=== PATIENT | male | born 1950 | race Caucasian/White ===

== ENCOUNTER 2020-03-05 16:45 | Emergency (ER) | payer MEDICARE, SELFPAY ==
[2020-03-05] MEDS: TETANUS,DIPHTHERIA,AC PERTUSSIS ADULT 0.5 ML (ADACEL) IM (17:12)
[2020-03-05 17:15] VITALS: BP 179/81; PULSE 76; RESP 15; TEMP 36.2; O2SAT 99
--- NOTE | 2020-03-05 17:22 | ED.EYEPROB ---
HPI - Eye Problem General Chief complaint: Eye Problems Stated complaint: R eye injury Time Seen by Provider: 03/05/20 16:52 Source: patient Mode of arrival: ambulatory Limitations: no limitations History of Present Illness HPI Narrative: 60-year-old man with a history of cataracts status post implants comes in today complaining of right eye pain and some blurry vision after an injury this afternoon. Patient states he was mowing and the more kicked out a rock that bounced off a tree and struck him in the right eye. He has some mild irritation in the lower eyelid area but denies headache, vomiting and double vision. Does not recall his last tetanus shot. chief complaint: eye pain, eye redness and eye injury Onset (ago): hour(s) (2) Onset description: sudden Duration: constant Location: right eye Eye Symptoms: burning, redness, pain and blurry vision Place: home Mechanism: direct trauma Severity: moderate If Pain, Quality: sharp and burning Context: other Associated symptoms: none Treatments Prior to Arrival: none Related Data Patient tetanus UTD: No Home Medications Medication Instructions Recorded Confirmed cephalexin 500 mg PO BID 03/05/20 03/05/20 lisinopril 10 mg PO DAILY 03/05/20 03/05/20 Allergies Allergy/AdvReac Type Severity Reaction Status Date / Time No Known Allergies Allergy Mild Unverified 12/02/07 08:13 Review of Systems Constitutional: Constitutional: Denies chills and Denies fever(s) Eyes: Eyes: Reports change in vision and Reports photophobia ENT: Denies dysphagia, Denies nasal congestion and Denies sore throat Cardiovascular: Cardiovascular: Denies chest pain and Denies radiating jaw, neck or arm pain Respiratory: Respiratory: Denies cough, Denies dyspnea and Denies wheezing Gastrointestinal: Gastrointestinal: Denies nausea and Denies vomiting Musculoskeletal: Musculoskeletal: Denies arthralgias and Denies joint swelling Neurologic: Denies vertigo, Denies dizziness and Denies syncope Hematologic/Lymphatic: Hematologic/Lymphatic: Reports easy bleeding and Reports easy bruising Allergic/Immunologic: Allergic/Immunologic: Reports lip swelling and Reports wheezing PMFSH Past Medical History Medical History (Updated 03/05/20 @ 17:31 by Juanjose Velez MD) Cataract Hypertension Prostate cancer Surgical History Surgical History H/O neck surgery History of phacoemulsification of cataract of right eye with intraocular lens implantation History of prostate surgery Social History Social History (Updated 03/05/20 @ 17:27 by Juanjose Velez MD) Smoking status: Never smoker Alcohol intake: never Substance use: never Living arrangements: with family Exam Const: General: healthy appearing and alert Orientation/consciousness: patient oriented x3 Limitations: no limitations Other: mild acute distress. HENMT: Head: normal to inspection Ears: external ears normal, TM's normal bilaterally and EAC's normal Mouth: Yes moist mucous membranes Throat: posterior oropharynx normal Eyes: Conjunctivae: conjunctival abnormality right conjunctival injection Pupils: Equal, round and reactive pupils present EOM: EOMs intact bilaterally Direct Ophthalmoscopy: photophobia ( Mild right) Other: Linear corneal abrasion at the 3 o'clock position (nasal) of the right cornea. There are some smaller punctate areas of Fluorescein uptake as well. Anterior chamber on gross exam appears normal. pupil is normal in appearance. Upper eyelid was inverted and swept with a moistened swab and no foreign body was found. The lower fossa was swept with a moistened swab and no foreign body was found. Resp: Effort & Inspection: normal respiratory effort and not labored Auscultation: clear to auscultation bilaterally, no rales, no rhonchi and no wheezes Cardio: Rate: abnormal rate Rhythm: abnormal rhythm Heart sounds: no murmurs Skin
--- NOTE | 2020-03-05 17:25 | PCDIET ---
VISUAL ACUITY 20/100 RIGHT EYE - EYE ASSESSMENT AND STAIN PER ERP SHOWS CORNEAL ABRASION
[2020-03-05 17:37] VITALS: RESP 16
== END 2020-03-05 17:40 | disposition home or self-care (01) ==
PROVIDERS: Emergency Provider Emergency Medicine; PCP Internal Medicine
DX: S05.01XA Injury of conjunctiva and corneal abrasion without foreign body, right eye, initial encounter (principal); W20.8XXA Other cause of strike by thrown, projected or falling object, initial encounter
CPT/HCPCS: 90471; 90715; 99283; A9270

== ENCOUNTER 2021-04-17 13:14 | Outpatient (CLI) | payer MEDICARE, OTHER, SELFPAY ==
--- NOTE | ~2021-04-17 | US_ITS ---
EXAMINATION: US retroperitoneal comp EXAM DATE: 04/17/2021 13:53 INDICATION: Stage 2 CKD . TECHNIQUE: Multiple grayscale and Doppler images of the kidneys were obtained (by a technologist who performed the scan) and subsequently reviewed. There is no prior study for comparison. FINDINGS: Right kidney: There is normal contour and echogenicity. It measures 10.8 x 5.1 x 5.1 centimeters. T here are no focal renal lesions identified. There is no hydronephrosis. Left kidney: There is normal contour and echogenicity. It measures 11.2 x 5.9 x 5.8 centimeters. Th ere are no focal renal lesions identified. There is no hydronephrosis. Bladder unremarkable. IMPRESSION: 1. Sonographically unremarkable kidneys. Reviewed, dictated and finalized at location A.
== END 2021-04-17 13:15 | disposition home or self-care (01) ==
LOC: CHSIMG 13:16
PROVIDERS: PCP Internal Medicine; Visit Provider Internal Medicine
DX: N18.2 Chronic kidney disease, stage 2 (mild) (principal)
CPT/HCPCS: 76770

== ENCOUNTER 2021-06-07 15:00 | Outpatient (RCR) | payer MEDICARE, OTHER, SELFPAY ==
--- NOTE | 2021-05-17 15:28 | PTOPEVAL ---
INITIAL PHYSICAL THERAPY EVALUATION and PLAN OF CARE Thank you for referring Kavon Crow to [facility].? Kavon is scheduled to be seen for physical therapy? 1x/week for 3 weeks. Please review, sign, date and return this plan of care GREGORIO. I agree with and certify that the following plan of care is medically necessary. Referring Physician Date Admitting Provider: Attending Provider: Renan Dozier MD Referring Provider: *PT Outpatient Evaluation Start: 05/17/21 14:13 Freq: Status: Active Protocol: Document 05/17/21 14:10 KAYLEE (Rec: 05/17/21 15:28 KAYLEE [id number]) Therapy Assessment Status Assessment Status Assessment Status Evaluation Outpatient Past Medical History Past Medical History Source of Past Medical History Recalled from Previous Visit, Confirmed with Patient/Family Cardiovascular History Hx Hypercholesterolemia Yes Hx Hypertension Yes Musculoskeletal History Hx Orthopedic Surgery Yes: NECK SURGERY - cervical fusion HEENT History Hx Cataracts Yes Other History Hx Cancer Yes: PROSTATE -surgical removal no chemo or radiation Evaluation Information Problem Diagnosis gait abnormalities, vestibular neuronitis, unspecified ear Onset November 2020 Subjective Information Sudden onset of severe Query Text:As Reported By Patient/ unsteadiness, decreased Family balance - received steroid injection and then medication - better but not back to normal. Then underwent diagnostic testing - carotids, brain scan - normal. Went to see ENT - didn't think it was vertigo - either Dr. Dozier or PCP ordered another round of steroid dose pack - helped with driving symptoms. Still having difficulties - when goes to cough/sneeze will feel a movement/sliding sensation, with eyes closed will feel off balance, stair climbing and looking up will feel unsteady. 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
--- NOTE | 2021-06-07 16:12 | PTOPEVAL ---
PHYSICAL THERAPY DISCHARGE SUMMARY Thank you for referring Kavon Crow to [facility].? Kavon has been seen x 4 visits in PT. He has met goals set and is compliant with HEP. He is to continue to upgrade VOR and balance activities at home. I agree with Kavon's discharge from PT. Referring Physician Date Admitting Provider: Attending Provider: Renan Dozier MD Referring Provider: Therapy Assessment Status Assessment Status Assessment Status Discharge Evaluation Information Problem Diagnosis gait abnormalities, vestibular neuronitis, unspecified ear Subjective Information Kavon reports overall better Query Text:As Reported By Patient/ . Will have moments of Family feeling really good, and then other times feeling a little off still. When driving the other day, increased rain - had to turn up windshield wipers - felt a little off - felt bombarded with everything . Didn't last long. When coughs - will still have the swerving motion sensation a little bit. The other day - did take a fall - light wasn't on, misstep - went down. When driving - still will have an off sensation - things kind of swerving. Generally feeling better on his feet now - steadier/improved balance. Pain Assessment Timing of Pain Assessment Timing of Pain Assessment Assessment Self Report Self Report Pain Level 0 Pain Score Pain Score 0: Self Report Vestibular Evaluation Vestibular Medical Information Standardized Tests Dizziness Handicap Inventory Standardized Test Scores (Number 0-100) 24 Vestibular Balance Standing Balance: Firm Surface Eyes Open WNL for 30 Seconds Standing Balance: Firm Surface Eyes WNL Closed for 30 Seconds Standing Balance: Foam Surface Eyes Open WNL for 30 Seconds Standing Balance: Foam Surface Eyes WNL,Sway Closed for 30 Seconds Tandem Stance: Eyes Open - Right Foot 30 Forward Tandem Stance: Eyes Open - Left Foot 30 Forward Tandem Stance: Eyes Closed - Right Foot 4 Forward Tandem Stance: Eyes Closed - Left Foot 13 Forward Vestibular Balance Comments single leg stance L 30 sec R 30 sec - stopped testing at 30 sec
== END 2021-06-08 12:52 | disposition home or self-care (01) ==
LOC: ANHPT 15:00
PROVIDERS: PCP Internal Medicine; Visit Provider Otolaryngology
DX: R26.89 Other abnormalities of gait and mobility (principal); H81.20 Vestibular neuronitis, unspecified ear
CPT/HCPCS: 97110; 97162

== ENCOUNTER 2021-08-28 12:54 | Outpatient (CLI) | payer MEDICARE, OTHER, SELFPAY ==
[2021-08-28 15:21] LABS: Influenza A QL RT-PCR Negative (Negative); Influenza B QL RT-PCR Negative (Negative); SARS-CoV-2 RNA PCR Positive (Negative)
== END 2021-08-28 12:55 | disposition home or self-care (01) ==
LOC: CHSLAB 12:56
PROVIDERS: PCP Internal Medicine; Visit Provider Internal Medicine
DX: U07.1 COVID-19 (principal); R05.9 Cough, unspecified; J02.9 Acute pharyngitis, unspecified
CPT/HCPCS: 87502; 87651; C9803; U0003; U0005

== ENCOUNTER 2022-01-08 14:14 | Outpatient (CLI) | payer MEDICARE, OTHER, SELFPAY ==
--- NOTE | ~2022-01-08 | XR_ITS ---
EXAMINATION: XR chest 2V DATE: 01/08/2022 14:40 INDICATION: Chest pain. TECHNIQUE: Frontal and lateral views of the chest were obtained on 3 radiographs. COMPARISON: None. FINDINGS: There is mild atelectasis in the lower lung zones. No pleural effusion or pneumothorax. The heart size is normal. Calcified left hilar lymph nodes are consistent with old granulomatous disease . There is mild chronic height loss of multiple vertebral bodies. IMPRESSION: 1. Mild atelectasis in the lower lung zones. Reviewed, dictated and finalized at location B.
[2022-01-08 14:33] LABS: Basophils Absolute Auto 0.07 K/mm3 (0.00-0.10); Basophils Percent Auto 0.8 % (0.0-1.0); Eosinophils Absolute Auto 0.06 K/mm3 (0.02-0.50); Eosinophils Percent Auto 0.7 % (1.0-6.0); Hematocrit 45.5 % (37.0-46.0); Hemoglobin 15.3 g/dL (12.4-15.3); Immature Granulocyte Absolute 0.02 K/mm3 (0.00-0.00); Immature Granulocyte Percent A 0.2 % (0.0-0.0); Lymphocytes Absolute Auto 1.16 K/mm3 (1.10-4.50); Lymphocytes Percent Auto 13.5 % (18.0-42.0); Mean Corpuscular HGB Conc 33.6 g/dL (32.0-36.0); Mean Corpuscular Volume 92.3 fL (78.0-102.0); Mean Platelet Volume 10.8 fl (8.7-11.0); Monocytes Percent Auto 9.3 % (2.0-11.0); Neutrophils Absolute Auto 6.5 K/mm3 (1.7-7.2); Neutrophils Percent Auto 75.5 % (50.0-70.0); Platelet Count Result 236 K/mm3 (150-420); Red Blood Count 4.93 M/mm3 (4.70-6.10); Red Cell Distribution Width 12.5 % (11.6-14.4); White Blood Count 8.6 K/mm3 (4.8-10.8)
[2022-01-08 14:47] LABS: D Dimer 0.36 mg/L (0.19-0.50)
[2022-01-08 14:59] LABS: Alanine Aminotransferase 17 U/L (16-63); Albumin Level 3.8 g/dL (3.4-5.0); Alkaline Phosphatase 119 U/L (46-116); Anion Gap 6 mmol/L (8-16); Aspartate Amino Transferase 45 U/L (15-37); Bilirubin,Total 0.8 mg/dL (0.00-1.00); Blood Urea Nitrogen 14 mg/dL (7-18); Calcium 8.8 mg/dL (8.5-10.1); Carbon Dioxide 28 mmol/L (21-32); Chloride 103 mmol/L (98-108); Creatine Kinase 99 U/L (39-308); Estimated Glomerular Filt Rate 47; Glucose 93 mg/dL (70-99); NT Pro B Type Natriuretic Pept 236 pg/mL (0-125); Osmolality Calculated 284 mOsm/kg (285-295); Potassium 4.1 mmol/L (3.5-5.1); Sodium 137 mmol/L (136-145); Thyroid Stimulating Hormone 1.22 uIU/mL (0.36-3.74); Total Protein 7.2 g/dL (6.4-8.2); Troponin I 10.5 ng/L (0.00-60.4)
[2022-01-08 17:01] LABS: GGT 33 U/L (15-85)
[2022-01-11 14:30] LABS: Hepatitis A Antibody IgM Nonreactive; Hepatitis B Core Antibody Nonreactive (Nonreactive); Hepatitis B Surface Antigen Nonreactive (Nonreactive); Hepatitis C Signal to Cutoff 0.02 ratio (<1.00); Hepatitis C Virus Antibody Nonreactive (Nonreactive)
--- NOTE | 2022-02-08 08:48 | WPDHOLTEREM ---
Holter/Event Monitor Holter/Event Monitor Date of procedure: 02/08/22 Holter/Event Procedure: Event Monitor Indications: Bradycardia Conclusion: 1. 25 days event monitor between 01/08/22-02/06/22. There are 35 available transmissions for analysis. 2. Underlying rhythm is sinus rhythm. HR range 45-151 bpm; average HR 65 bpm. HR at 151 bpm was on 01/17/22 at 07:25. 3. There are occasional premature supraventricular complexes with total burden of <1%. No supraventricular tachycardia. 4. There are occasional premature ventricular complexes with total burden of <1%. No ventricular tachycardia. 5. No significant pauses greater than 2 seconds. 6. Patient reports 16 episodes of symptoms of chest pain, lightheadedness, shortness of breath, heart racing, symptoms other than listed which demonstrate sinus rhythm, HR range 53-109 bpm.
== END 2022-01-08 14:15 | disposition home or self-care (01) ==
LOC: CHSLAB 14:20
PROVIDERS: PCP Internal Medicine; Visit Provider Internal Medicine
DX: R42 Dizziness and giddiness (principal); R00.1 Bradycardia, unspecified; R07.9 Chest pain, unspecified; R94.5 Abnormal results of liver function studies; Z79.899 Other long term (current) drug therapy; R06.00 Dyspnea, unspecified
CPT/HCPCS: 36415; 71046; 80053; 80074; 82550; 82553; 82977; 83880; 84443; 84484; 85025; 85380; 93270

== ENCOUNTER 2022-11-01 15:24 | Outpatient (CLI) | payer MEDICARE, OTHER, SELFPAY ==
--- NOTE | ~2022-11-01 | XR_ITS ---
XR shoulder LT min 2V DATE: 11/01/2022 15:55 INDICATION: Anterior left shoulder pain for one day TECHNIQUE: 4 views COMPARISON: None FINDINGS: Bilateral elongated C7 transverse processes. Chondrocalcinosis and mild degenerative spurring of the left acromioclavicular joint. No fracture, dislocation, periosteal reaction or bone destruction of the left shoulder. No abnormal s oft tissue calcification is noted otherwise. Scoliosis and degenerative spurring of the thoracic spine. IMPRESSION: Mild degenerative spurring and chondrocalcinosis at left acromioclavicular joint Reviewed, dictated and finalized at location B. RETTE STAMPER IMPRESSION: Mild degenerative spurring and chondrocalcinosis at left acromiocla vicular joint
== END 2022-11-01 15:25 | disposition home or self-care (01) ==
LOC: CHSIMG 15:27
PROVIDERS: PCP Internal Medicine; Visit Provider Nurse Practitioner Family
DX: M25.512 Pain in left shoulder (principal); M77.8 Other enthesopathies, not elsewhere classified; M11.212 Other chondrocalcinosis, left shoulder
CPT/HCPCS: 73030

== ENCOUNTER 2023-09-25 11:18 | Outpatient (CLI) | payer MEDICARE, OTHER, SELFPAY ==
--- NOTE | ~2023-09-25 | XR_ITS ---
XR ribs LT 2V w CXR 2V DATE: 09/25/2023 11:44 INDICATION: Left anterior chest pain TECHNIQUE: PA and lateral chest. 3 views of the left ribs. COMPARISON: 01/08/2022 PA and lateral chest FINDINGS: Normal heart size. No hilar or mediastinal enlargement. Minimal atelectasis at the lung bases. No pulmonary infiltrate or consolidation, pleural effusion or pulmonary vascular congestion or pneumothorax is noted otherwise. There is osteopenia. There is prominent degenerative spurring of the lower thoracic spine. Small bilateral cervical ribs. No left rib fracture or bone destruction is detected. IMPRESSION: No left rib fracture or bone destruction Minimal atelectasis at the lung bases; otherwise no active cardiac pulmonary disease Reviewed, dictated and finalized at location L. GHT ROUTER IMPRESSION: No left rib fracture or bone destruction Minimal atelectasis at the lung bases; otherwise no active cardiac pulmonary di sease
--- NOTE | ~2023-09-25 | XR_ITS ---
XR shoulder LT min 2V DATE: 09/25/2023 11:44 INDICATION: Left shoulder pain TECHNIQUE: 4 views COMPARISON: 11/01/2022 left shoulder FINDINGS: There is mild degenerative spurring and chondrocalcinosis at the left acromioclavicular william nt. No fracture or dislocation, periosteal reaction or bone destruction. IMPRESSION: Mild degenerative change and chondral calcinosis at the left acromion clavicular joint; n o other significant abnormality or significant change since 11/01/2022 Reviewed, dictated and finalized at location L. R ACCOMPANIST IMPRESSION: Mild degenerative change and chondral calcinosis at the left acromi on clavicular joint; no other significant abnormality or significant change sin ce 11/01/2022
== END 2023-09-25 11:19 | disposition home or self-care (01) ==
LOC: CHSIMG 11:21
PROVIDERS: PCP Internal Medicine; Visit Provider Internal Medicine
DX: M25.512 Pain in left shoulder (principal); R07.89 Other chest pain; J98.11 Atelectasis; E83.59 Other disorders of calcium metabolism
CPT/HCPCS: 71046; 71100; 73030

== ENCOUNTER 2023-10-07 09:52 | Outpatient (RCR) | payer MEDICARE, OTHER, SELFPAY ==
--- NOTE | 2023-10-14 13:00 | OPREHPOC ---
Outpatient Therapy Plan of Care This is a Multidisciplinary Plan of Care that may contain components documented by all disciplines (PT, OT, and ST.) PT Problem 1 PT Problem #1 Knowledge Deficit PT Goal 1 Goal 1. independent and compliant with HEP Target Visit 6 PT Problem 2 PT Problem #2 Pain PT Goal 1 Goal 1. decrease pain at worst to 2/10 or less Target Visit 12 PT Problem 3 PT Problem #3 Impaired Range of Motion PT Goal 1 Goal 1. L shoulder active flexion to 145 degrees 2. L shoulder active IR to 50 degrees 3. L shoulder active ER to 80 degrees 4. L shoulder active abduction to 115 degrees Target Visit 12 PT Problem 4 PT Problem #4 Impaired Strength PT Goal 1 Goal 1. 4+/5 or better overall L shoulder strength Target Visit 12 PT Problem 5 PT Problem #5 Impaired Functional Mobil PT Goal 1 Goal 1. patient to display equal functional IR reach behind back 2. patient to display equal functional ER reach behind head 3. quick DASH to display less than 20% functional deficits 4. patient to lift 5lbs overhead in flexion and abduction without pain with the L UE. Target Visit 12
--- NOTE | 2023-10-14 13:00 | PTOPEVAL1 ---
Assessment and note entered by JT File, PT Evaluation Information Assessment Status Evaluation Diagnosis L shoulder pain Onset 10/01/23 Subjective Information patient reports he has had pain in the L shoulder and chest for quite a while. he reports his shoulder and chest pain increase with reaching up and out to his side/behind head. he reports he had a stent placed around the heart, but reports they used the R arm for access. he reports he has increased pain and tightness in the L shoulder with lifting objects with weight to them, especially out away from his body. he reports his symptoms are reduced with aspirin meds. he reports he did have an injection last week to the L shoulder. he reports it felt better for a few days , but is now back to where it was. Assessment PT Clinical Summary mr. bentley is a 73 yo man who presents to skilled PT services for evaluation and treatment of L shoulder pain. he displays decreased L shoulder rom, L shoulder weakness, pain, and deficits in functional reaching with the L shoulder. his presentation is consistent with a tendonitis of the L RTC. continued skilled PT is indicated to improve patients objective/functional deficits and progress towards return to full prior level functional activity performance and quality of life. Plan of Care Interventions Electrical Stimulation,Hot Pack/Cold Pack,Manual Therapy,Neuro Re-education,Patient/Caregiver Educati,Therapeutic Activities,Therapeutic Exercise,Other Other Interventions dry needling PT Services Indicated Yes Treatment Frequency and 3x weekly for 12 visits Duration These treatments will address the objective and functional deficits as defined above. The patient will be advanced safely and appropriately in order for the patient to progress towards his/her prior level of function. Additional exercises will be introduced and as well as a comprehensive home exercise program upon discharge, if needed, ?to ensure carryover of functional gains achieved in the clinic. This treatment plan has been reviewed and agreement upon by the patient.
--- NOTE | 2023-10-30 08:07 | OPREHPOC ---
Outpatient Therapy Plan of Care This is a Multidisciplinary Plan of Care that may contain components documented by all disciplines (PT, OT, and ST.) PT Problem 1 PT Problem #1 Knowledge Deficit PT Goal 1 Goal 1. independent and compliant with HEP Target Visit 18 Progress Partially Met Comment met to date, continue to progress PT Problem 2 PT Problem #2 Pain PT Goal 1 Goal 1. decrease pain at worst to 2/10 or less Target Visit 18 Progress Not Met Comment progress towards, continue PT Problem 3 PT Problem #3 Impaired Range of Motion PT Goal 1 Goal 1. L shoulder active flexion to 145 degrees -met 2. L shoulder active IR to 50 degrees -met 3. L shoulder active ER to 80 degrees -progress towards, continue 4. L shoulder active abduction to 115 degrees - not met, continue Target Visit 18 Progress Partially Met Comment continue those not met PT Problem 4 PT Problem #4 Impaired Strength PT Goal 1 Goal 1. 4+/5 or better overall L shoulder strength Target Visit 18 Progress Partially Met Comment continue PT Problem 5 PT Problem #5 Impaired Functional Mobil PT Goal 1 Goal 1. patient to display equal functional IR reach behind back -met 2. patient to display equal functional ER reach behind head -met 3. quick DASH to display less than 20% functional deficits -not met, continue 4. patient to lift 5lbs overhead in flexion and abduction without pain with the L UE. -not met, continue Target Visit 18 Comment continue
--- NOTE | 2023-10-30 08:07 | PTOPPROG ---
Assessment and note entered by Sarai Bailey, PT Evaluation Information Assessment Status Progress Diagnosis L shoulder pain Onset 10/01/23 Subjective Information Kavon Crow reports his left shoulder is doing better overall. He notes his chest pain has resolved and now pain is mostly in the shoulder. He is having more soreness today which he attributes to having PT 3 days in a row. He has difficutly lifting to side and holding his left arm up past shoulder height for long periods. Assessment PT Clinical Summary Kavon Crow has completed 10 skilled PT visits for left shoulder pain. He is a reporting an overall decrease in symptoms but does have more soreness this am due to having PT 3 days in a row. He reports difficulty lifting to the side and holding things up for a long period which limits his ability to perform household tasks and work in the garage. He objectively demonstrates improved improved left shoulder strength and AROM. He continues to demonstrate decreased pectoralis flexibility, tenderness at the pectoralis minor tendon, decreased left glenohumeral inferior joint play, decreased left shoulder abduction AROM, decreased left shoulder strength, and + special tests consistent with tendonitis. He will continue to benefit from skilled PT to further address these limitations and improve his functional abilities. Plan of Care Interventions Electrical Stimulation,Gait Training,Manual Therapy,Patient/Caregiver Educati,Therapeutic Activities,Therapeutic Exercise Other Interventions dry needling PT Services Indicated Yes Treatment Frequency and Continue skilled PT 2 times a week for 8 visits Duration These treatments will address the objective and functional deficits as defined above. The patient will be advanced safely and appropriately in order for the patient to progress towards his/her prior level of function. Additional exercises will be introduced and as well as a comprehensive home exercise program upon discharge, if needed, ?to ensure carryover of functional gains achieved in the clinic. This treatment plan has been reviewed and agreement upon by the patient.
--- NOTE | 2023-11-27 08:05 | OPREHPOC ---
Outpatient Therapy Plan of Care This is a Multidisciplinary Plan of Care that may contain components documented by all disciplines (PT, OT, and ST.) PT Problem 1 PT Problem #1 Knowledge Deficit PT Goal 1 Goal 1. independent and compliant with HEP Target Visit 18 Progress Met Comment . PT Problem 2 PT Problem #2 Pain PT Goal 1 Goal 1. decrease pain at worst to 2/10 or less Target Visit 18 Progress Met Comment . PT Problem 3 PT Problem #3 Impaired Range of Motion PT Goal 1 Goal 1. L shoulder active flexion to 145 degrees -met 2. L shoulder active IR to 50 degrees -met 3. L shoulder active ER to 80 degrees -progress towards, continue 4. L shoulder active abduction to 115 degrees - not met, continue Target Visit 18 Progress Met Comment . PT Problem 4 PT Problem #4 Impaired Strength PT Goal 1 Goal 1. 4+/5 or better overall L shoulder strength Target Visit 18 Progress Met Comment . PT Problem 5 PT Problem #5 Impaired Functional Mobil PT Goal 1 Goal 1. patient to display equal functional IR reach behind back -met 2. patient to display equal functional ER reach behind head -met 3. quick DASH to display less than 20% functional deficits. met 4. patient to lift 5lbs overhead in flexion and abduction without pain with the L UE. met Target Visit 18 Progress Met Comment .
--- NOTE | 2023-11-27 08:42 | PTOPDC ---
Assessment and note entered by JT File, PT Evaluation Information Assessment Status Discharge Diagnosis L shoulder pain Onset 10/01/23 Subjective Information patient reports he feels good today. he reports he was swinging a hammer and sledgehammer yesterday and his R arm and neck were a little sore. he reports he is consistent with his HEP at home, and has bands and light weights to use. Reported Pain Level Pain Score 1: Self Report Assessment PT Clinical Summary mr. bentley presents to skilled PT services for his 18th skilled therapy visit. as of this date, he has met all goals for skilled PT. he was given an updated HEP for continued exercises and strengthening on his own. he will be DC'd from skilled PT today, and was educated to follow up with MD/PT if any return of symptoms occurs. Plan of Care PT Services Indicated Yes
== END 2023-11-27 09:03 | disposition home or self-care (01) ==
LOC: CHSPT 09:52
PROVIDERS: PCP Internal Medicine; Visit Provider Internal Medicine
DX: M25.512 Pain in left shoulder (principal)
CPT/HCPCS: 97014; 97110; 97140; 97161; G0283